=== PATIENT | female | born 1960 | race African-American/Black ===

== ENCOUNTER 2021-08-20 13:13 | Inpatient (IN) | payer MEDICAID, OTHER ==
[~2021-08-20] VITALS: Ht 162.6 cm; Wt 678.6 kg
[~2021-08-20 13:13] MED LIST: LOSA25TA26 PO
[2021-08-20] MEDS ORDERED: ACETAMINOPHEN 325MG TABLET PO STA (13:36)
[2021-08-20 15:25] LABS: BASOPHILS % 2.1 % (0.0-2.0); EOSINOPHILS % 2.6 % (0.0-5.0); HEMATOCRIT. 40.6 % (36.0-48.0); HEMOGLOBIN. 13.3 g/dL (12.0-16.0); LYMPHOCYTES % 47.9 % (20.0-50.0); MEAN CORPUSCULAR HEMOGLOBIN 28.9 pg (28.0-32.0); MEAN CORPUSCULAR VOLUME 88.3 fL (81.0-99.0); MEAN PLATELET VOLUME 8.4 fl (7.4-10.4); MONOCYTES % 8.8 % (2.0-8.0); NEUTROPHILS % 38.6 % (40.0-76.0); PLATELET 194 x1000/uL (130-400); RED CELL DISTRIBUTION WIDTH 14.6 % (11.6-14.6)
[2021-08-20 15:34] LABS: CHLORIDE 110 mEq/L (98-107)
[2021-08-20] MEDS ORDERED: ASPIRIN 81MG TABLET PO ONE (22:15)
[2021-08-20] MEDS ORDERED: ACETAMINOPHEN 325MG TABLET PO SCH (22:15)
[2021-08-20 22:42] LABS: CLARITY URINE CLEAR (CLEAR); COLOR URINE YELLOW (YELLOW); KETONES URINE NEGATIVE (NEGATIVE); LEUKOCYTE ESTERASE URINE 2+ (NEGATIVE); NITRITE URINE NEGATIVE (NEGATIVE); OCCULT BLOOD URINE NEGATIVE (NEGATIVE); PROTEIN URINE NEGATIVE (NEGATIVE); SPECIFIC GRAVITY URINE 1.012 (1.005-1.030); UROBILINOGEN URINE 0.2 E.U./dL (0.2-1.0)
[2021-08-20] MEDS: NITROGLYCERIN 0.4MG TABLET SL SL PRN (23:19)
[2021-08-21] MEDS ORDERED: CEFTRIAXONE 1 G PREMIX 50 ML IV ONE (02:30)
[2021-08-21 03:40] VITALS: BP 142/81
[2021-08-21] MEDS ORDERED: AMLO5TAB88 MT (04:40)
[2021-08-21] MEDS ORDERED: SIMV-43 MT (04:40)
[2021-08-21] MEDS ORDERED: MIRT-89 MT (04:40)
[2021-08-21] MEDS ORDERED: LATA2.5D14 EACHEYE (04:40)
[2021-08-21] MEDS ORDERED: ASPI-1406 MT (04:40)
[2021-08-21] MEDS ORDERED: DORZ10DR8 EACHEYE (04:40)
[2021-08-21] MEDS ORDERED: LOSA100T32 MT (04:40)
[2021-08-21] MEDS ORDERED: BACL-141 MT (04:40)
[2021-08-21] MEDS: HYDROCODONE/ACETAMINOPHEN 10/325MG TABLET PO PRN ×2 (06:52→17:37)
[2021-08-21 08:00] VITALS: BP 124/71
[2021-08-21] MEDS: AMLODIPINE 5MG TABLET PO SCH (08:36)
[2021-08-21] MEDS: LOSARTAN POTASSIUM 100 MG TABLET PO SCH (08:36)
[2021-08-21] MEDS ORDERED: METOPROLOL TARTRATE 25MG TABLET PO SCH (09:00)
[2021-08-21] MEDS: DORZOLAMIDE 2% OPHTH 10 ML BOTTLE EACHEYE SCH ×3 (09:01→17:37)
[2021-08-21] MEDS: ASPIRIN 81MG EC TABLET PO SCH (09:01)
[2021-08-21 09:57] LABS: BASOPHILS % 1.4 % (0.0-2.0); EOSINOPHILS % 3.6 % (0.0-5.0); HEMATOCRIT. 41.5 % (36.0-48.0); HEMOGLOBIN. 13.6 g/dL (12.0-16.0); LYMPHOCYTES % 49.9 % (20.0-50.0); MEAN CORPUSCULAR HEMOGLOBIN 28.4 pg (28.0-32.0); MEAN CORPUSCULAR VOLUME 86.6 fL (81.0-99.0); MEAN PLATELET VOLUME 8.4 fl (7.4-10.4); MONOCYTES % 9.8 % (2.0-8.0); NEUTROPHILS % 35.3 % (40.0-76.0); PLATELET 200 x1000/uL (130-400); RED BLOOD CELL COUNT 4.79 mill/uL (4.2-5.4); RED CELL DISTRIBUTION WIDTH 14.3 % (11.6-14.6)
[2021-08-21 10:09] LABS: CHLORIDE 111 mEq/L (98-107)
[2021-08-21 12:30] VITALS: BP 142/76
[2021-08-21 16:30] VITALS: BP 134/72
[2021-08-21] MEDS ORDERED: ONDANSETRON HCL 4MG/2ML INJ IV PRN (18:30)
[2021-08-21] MEDS ORDERED: MAGNESIUM/ALUMINUM HYDROXIDE/SIMETHICONE 30ML UDC PO PRN (18:30)
[2021-08-21] MEDS ORDERED: DOCUSATE SODIUM 100MG CAPSULE PO PRN (18:30)
[2021-08-21] MEDS ORDERED: ACETAMINOPHEN 325MG TABLET PO PRN (18:30)
[2021-08-21] MEDS ORDERED: NALOXONE HCL 0.4MG/ML VIAL IV PRN (18:45)
[2021-08-21 20:00] VITALS: BP_SYST 129; BP_SYST 135; BP_SYST 143; BP_DIAS 76; BP_DIAS 78; BP_DIAS 80
[2021-08-21] MEDS ORDERED: POTASSIUM CHLORIDE 20MEQ TABLET SR PO SCH (20:00)
[2021-08-21 20:11] LABS: CLARITY URINE CLEAR (CLEAR); COLOR URINE YELLOW (YELLOW); KETONES URINE NEGATIVE (NEGATIVE); LEUKOCYTE ESTERASE URINE TRACE (NEGATIVE); NITRITE URINE NEGATIVE (NEGATIVE); OCCULT BLOOD URINE NEGATIVE (NEGATIVE); PROTEIN URINE NEGATIVE (NEGATIVE); SPECIFIC GRAVITY URINE 1.006 (1.005-1.030); UROBILINOGEN URINE 0.2 E.U./dL (0.2-1.0)
[2021-08-21 20:13] LABS: *AMPHETAMINES SCREEN URINE NEGATIVE (NEGATIVE); *BARBITURATES SCREEN URINE NEGATIVE (NEGATIVE); *BENZODIAZEPINES SCREEN URINE NEGATIVE (NEGATIVE); *COCAINE SCREEN URINE NEGATIVE (NEGATIVE); CANNABINOID URINE SCREEN NEGATIVE (NEGATIVE); METHADONE URINE SCREEN NEGATIVE (NEGATIVE); OPIATES URINE SCREEN PRESUMTIVE POSITIVE (NEGATIVE); PHENCYCLIDINE URINE SCREEN NEGATIVE (NEGATIVE)
[2021-08-21] MEDS: MIRTAZAPINE 15MG TABLET PO SCH (20:52)
[2021-08-21] MEDS: ENOXAPARIN 40MG/0.4ML SYR SUBCUT SCH (20:53)
[2021-08-21] MEDS: LATANOPROST 0.005% OPHTH DROPS 2.5ML EACHEYE SCH (20:53)
[2021-08-21] MEDS: HYDROCODONE/ACETAMINOPHEN 5/325MG TABLET PO PRN (22:09)
[2021-08-22] VITALS: BP 132/76
[2021-08-22 04:00] VITALS: BP 105/64
[2021-08-22] MEDS: OMEPRAZOLE 20MG CAPSULE EXTENDED RELEASE PO SCH (06:27)
[2021-08-22] MEDS: HYDROCODONE/ACETAMINOPHEN 10/325MG TABLET PO PRN (06:53)
[2021-08-22 08:00] VITALS: BP_SYST 129; BP_SYST 133; BP_SYST 140; BP_DIAS 87; BP_DIAS 92; BP_DIAS 94
[2021-08-22 08:27] LABS: CHLORIDE 114 mEq/L (98-107)
[2021-08-22 08:33] LABS: BASOPHILS % 1.1 % (0.0-2.0); EOSINOPHILS % 4.7 % (0.0-5.0); HEMATOCRIT. 43.3 % (36.0-48.0); HEMOGLOBIN. 14.1 g/dL (12.0-16.0); LYMPHOCYTES % 56.5 % (20.0-50.0); MEAN CORPUSCULAR HEMOGLOBIN 29.2 pg (28.0-32.0); MEAN CORPUSCULAR VOLUME 89.5 fL (81.0-99.0); MEAN PLATELET VOLUME 8.5 fl (7.4-10.4); MONOCYTES % 9.5 % (2.0-8.0); NEUTROPHILS % 28.2 % (40.0-76.0); PLATELET 187 x1000/uL (130-400); RED BLOOD CELL COUNT 4.84 mill/uL (4.2-5.4); RED CELL DISTRIBUTION WIDTH 14.9 % (11.6-14.6)
[2021-08-22 08:44] LABS: HDL CHOLESTEROL 57 mg/dL (40-59); LDL CHOLESTEROL 86 mg/dL (5-100); PHOSPHORUS 4.3 mg/dL (2.5-4.9); T4 FREE 0.89 ng/dL (0.76-1.46)
[2021-08-22] MEDS: DORZOLAMIDE 2% OPHTH 10 ML BOTTLE EACHEYE SCH ×3 (08:58→17:24)
[2021-08-22] MEDS: LOSARTAN POTASSIUM 100 MG TABLET PO SCH (08:58)
[2021-08-22] MEDS: ASPIRIN 81MG EC TABLET PO SCH (08:58)
[2021-08-22] MEDS: AMLODIPINE 5MG TABLET PO SCH (08:59)
[2021-08-22 12:30] VITALS: BP 106/58
[2021-08-22] MEDS: HYDROCODONE/ACETAMINOPHEN 5/325MG TABLET PO PRN (12:37)
[2021-08-22 16:24] VITALS: BP 125/101
[2021-08-22 20:00] VITALS: BP 96/60
[2021-08-22] MEDS: ENOXAPARIN 40MG/0.4ML SYR SUBCUT SCH (20:54)
[2021-08-22] MEDS: LATANOPROST 0.005% OPHTH DROPS 2.5ML EACHEYE SCH (20:54)
[2021-08-22] MEDS: MIRTAZAPINE 15MG TABLET PO SCH (20:54)
[2021-08-23] VITALS: BP 106/54
[2021-08-23 04:00] VITALS: BP_SYST 131; BP_SYST 135; BP_SYST 139; BP_DIAS 67; BP_DIAS 69; BP_DIAS 72
[2021-08-23] MEDS: OMEPRAZOLE 20MG CAPSULE EXTENDED RELEASE PO SCH (06:02)
[2021-08-23 08:00] VITALS: BP_SYST 108; BP_SYST 110; BP_SYST 114; BP_DIAS 63; BP_DIAS 65; BP_DIAS 68
[2021-08-23 08:40] LABS: BASOPHILS % 1.7 % (0.0-2.0); EOSINOPHILS % 3.9 % (0.0-5.0); HEMATOCRIT. 39.3 % (36.0-48.0); HEMOGLOBIN. 13.1 g/dL (12.0-16.0); LYMPHOCYTES % 52.7 % (20.0-50.0); MEAN CORPUSCULAR VOLUME 86.8 fL (81.0-99.0); MEAN PLATELET VOLUME 8.4 fl (7.4-10.4); MONOCYTES % 9.2 % (2.0-8.0); NEUTROPHILS % 32.5 % (40.0-76.0); PLATELET 179 x1000/uL (130-400); RED BLOOD CELL COUNT 4.53 mill/uL (4.2-5.4); RED CELL DISTRIBUTION WIDTH 14.3 % (11.6-14.6)
[2021-08-23] MEDS: DORZOLAMIDE 2% OPHTH 10 ML BOTTLE EACHEYE SCH ×2 (08:52→12:07)
[2021-08-23] MEDS: ASPIRIN 81MG EC TABLET PO SCH (08:53)
[2021-08-23] MEDS: AMLODIPINE 5MG TABLET PO SCH (08:53)
[2021-08-23] MEDS: LOSARTAN POTASSIUM 100 MG TABLET PO SCH (08:53)
[2021-08-23] MEDS: NITROGLYCERIN 0.4MG TABLET SL SL PRN (09:00)
[2021-08-23 09:11] LABS: CHLORIDE 114 mEq/L (98-107)
[2021-08-23] MEDS ORDERED: AMLO10TA4 MT (10:51)
[2021-08-23 12:00] VITALS: BP_SYST 123; BP_SYST 125; BP_SYST 127; BP_DIAS 78; BP_DIAS 80; BP_DIAS 81
[2021-08-23 13:15] VITALS: BP 127/80
[2021-08-24] MEDS ORDERED: FAMOTIDINE 20MG TABLET PO SCH (09:00)
== END 2021-08-23 15:15 | disposition home or self-care (01) | DRG 111 ==
LOC: ER 13:13 → MICUSO 08-21 00:41 → 8WST 08-21 03:17
PROVIDERS: ADMIT Internal Medicine; ATTEND Internal Medicine
DX: R42 Dizziness and giddiness (principal); E87.8 Other disorders of electrolyte and fluid balance, not elsewhere classified; E78.00 Pure hypercholesterolemia, unspecified; R07.89 Other chest pain; E78.5 Hyperlipidemia, unspecified; E87.6 Hypokalemia; I10 Essential (primary) hypertension; M19.90 Unspecified osteoarthritis, unspecified site; R26.81 Unsteadiness on feet; R26.89 Other abnormalities of gait and mobility; R53.83 Other fatigue; Z79.899 Other long term (current) drug therapy; Z79.82 Long term (current) use of aspirin
CPT/HCPCS: 36415; 71045; 80048; 80053; 80061; 80076; 80305; 81003; 83036; 83735; 83880; 84100; 84439; 84443; 84484; 85025; 85379; 93005; 93306; 93970; 99285; J0696; J1650

== ENCOUNTER 2021-12-24 13:17 | Emergency (ER) | payer MEDICAID, OTHER ==
[~2021-12-24 13:17] MED LIST changes: +AMLO10TA4 MT; +ASPI-1406 MT; +BACL-141 MT; +DORZ10DR8 EACHEYE; +LATA2.5D14 EACHEYE; -LOSA25TA26 PO; +MIRT-89 MT; +SIMV-43 MT
== END 2021-12-24 13:25 | disposition left against medical advice (07) ==
LOC: ER 13:17
DX: Z53.21 Procedure and treatment not carried out due to patient leaving prior to being seen by health care provider (principal)